=== PATIENT | female | born 1995 | race Two or more races ===

== ENCOUNTER 2022-03-23 15:48 | Emergency (ER) | payer OTHER ==
[~2022-03-23] VITALS: Ht 170.2 cm; Wt 74.8 kg
[2022-03-23] MEDS ORDERED: FLUORESCEIN SOD OPTH TEST STRIP OP ONE (16:15)
[2022-03-23] MEDS ORDERED: TETRACAINE HCL 0.5% OPTH(EYE) SOLN 4ML EACHEYE ONE (16:15)
[2022-03-23 16:23] VITALS: BP 120/81
[2022-03-23] MEDS ORDERED: CIP03OS EACHEYE (16:51)
== END 2022-03-23 17:12 | disposition home or self-care (01) ==
LOC: ER 15:48
DX: S05.02XA Injury of conjunctiva and corneal abrasion without foreign body, left eye, initial encounter (principal); X58.XXXA Exposure to other specified factors, initial encounter; Y93.89 Activity, other specified; Y92.89 Other specified places as the place of occurrence of the external cause; Y99.8 Other external cause status

== ENCOUNTER 2022-04-04 16:50 | Emergency (ER) | payer MEDICAID, OTHER ==
[~2022-04-04] VITALS: Ht 170.2 cm; Wt 74.8 kg
[~2022-04-04 16:50] MED LIST: CIP03OS EACHEYE
[2022-04-04 16:56] VITALS: BP 115/71
== END 2022-04-04 17:57 | disposition home or self-care (01) ==
LOC: ER 16:50
DX: S93.401A Sprain of unspecified ligament of right ankle, initial encounter (principal); Z79.899 Other long term (current) drug therapy; X50.1XXA Overexertion from prolonged static or awkward postures, initial encounter; Y93.89 Activity, other specified; Y92.89 Other specified places as the place of occurrence of the external cause; Y99.8 Other external cause status
CPT/HCPCS: 73610